=== PATIENT | female | born 1985 | race Caucasian/White ===

== ENCOUNTER → 2021-05-25 08:28 | Outpatient (CLI) | payer OTHER, SELFPAY ==
--- NOTE | 2021-05-25 08:30 | DI.US.S_ITS ---
PROCEDURE: US OB >= 14 WEEKS FETUS INDICATIONS: ANATOMY, LATE TO CARE OUTSIDE/PRIOR DATING DATA: Last menstrual period (LMP): Unknown. First dating scan (date and location): May 25, 2021 Estimated date of delivery (ABENA) from first dating scan: October 11, 2021. TECHNIQUE: Real-time scanning was performed of the fetus, with image documentation and biometric measurements. COMPARISON: None. FINDINGS: General: A single living intrauterine gestation is present. Presentation: Breech/oblique. Placenta: Placental position is anterior , without previa. Amniotic fluid index: 10.8 cm, normal range is 5-24 cm. Single deepest vertical pocket is 4.2 cm. heart rate: 153 beats per minute. Maternal cervical canal: 4.1 cm long. Normal lower limit is 2.5 cm. biometrics: Biparietal diameter: 4.8 cm Head circumference: 17.6 cm Abdominal circumference: 14.7 cm Femur length: 3.2 cm Composite gestational age from present scan: 20 weeks, 1 day Estimated weight: 322 g +/-48 g Anatomic survey: Neuro: Ventricles are non-dilated at less than 10 mm. Cisterna magna is normal at 3-11 mm. Cerebellum is normal in size and morphology. Nuchal skin fold: Normal at less than 6 mm between 14-21 weeks gestational age. Face: Nose and lips, facial profile are normal. Spine: No evidence for spina bifida. Heart: 4-chambered heart is present, with normal ventricular outflow tracts. Diaphragm: Diaphragm is intact. Stomach: Left-sided stomach is present. Kidneys: No hydronephrosis. Normal is less than 5 mm in 2nd trimester, less than 7 mm in 3rd trimester. Cord: 3-vessel cord has orthotopic insertion. Bladder: Normal in size. Extremities: All 4 extremities identified. IMPRESSION: Live single intrauterine gestation as detailed above. We strive to produce accurate, complete, and clear reports of imaging services. To assist us in improving patient care, this report was composed using standard report templates and voice recognition software. Therefore, it may contain abnormal punctuation, insertions and/or omissions. Occasional wrong-word or sound-alike substitutions may occur. Though we review the report and make efforts to correct it, we do recommend that the report be read carefully in proper context to recognize any text inaccuracies. Dictated by: Jorge Wilson M.D. on 05/25/2021 at 15:03 Approved by: Jorge Wilson M.D. on 05/25/2021 at 15:06
[2021-05-25 09:41] LABS: Appearance Urine UA CLEAR; Bilirubin Urine UA NEGATIVE (NEGATIVE); Color Urine UA YELLOW; Glucose Urine UA NEGATIVE (Negative); Ketones Urine UA NEGATIVE (NEGATIVE); Leukocyte Esterase Urine UA NEGATIVE (NEGATIVE); Nitrite Urine UA NEGATIVE (Negative); Occult Blood Urine UA NEGATIVE (Negative); Protein Urine UA NEGATIVE (Negative); Specific Gravity Urine UA <=1.005 (1.000-1.035); Urobilinogen Urine UA 0.2 E.U./dL (0.2)
[2021-05-25 11:03] LABS: HIV 1 & 2 Ab/Ag 4th Gen Combo NEGATIVE (NEGATIVE); Hep C Virus Ab w/Reflex Quant NEGATIVE s/c (NEGATIVE)
[2021-05-26 08:38] LABS: Toxoplasma IgG Interp Negative (.); Toxoplasma gohndii IgG <3.0 IU/mL (0.0-7.1); Varicella IgG Antibody 1387 index (Immune >165)
== END ==
PROVIDERS: Referring Provider Obstetrics & Gynecology; Visit Provider Obstetrics & Gynecology
DX: Z20.7 Contact with and (suspected) exposure to pediculosis, acariasis and other infestations; Z36.89 Encounter for other specified antenatal screening; Z3A.20 20 weeks gestation of pregnancy
CPT/HCPCS: 36415; 76811; 81003; 86777; 86778; 86787; 86803; 87086; 87389

== ENCOUNTER → 2021-07-16 08:47 | Outpatient (CLI) | payer OTHER, SELFPAY ==
[2021-07-16 11:28] LABS: Hemoglobin 11.7 g/dL (12.0-16.0)
[2021-07-16 11:51] LABS: GTT (PREG) 1 Hour PP 50gm Dose 142 mg/dL (76-139)
== END ==
PROVIDERS: Obstetrics & Gynecology; Referring Provider Family Medicine; Visit Provider Family Medicine
DX: Z34.82 Encounter for supervision of other normal pregnancy, second trimester (principal); Z3A.25 25 weeks gestation of pregnancy
CPT/HCPCS: 36415; 82950; 85014; 85018

== ENCOUNTER → 2021-07-18 07:29 | Outpatient (CLI) | payer OTHER, SELFPAY ==
[2021-07-18 09:08] LABS: Glucose Fasting Gestational 83 mg/dL (76-95)
[2021-07-18 10:51] LABS: Glucose Tol Interp,Gestational INTERPRETATION
[2021-07-18 10:54] LABS: Glucose 1 Hour Gest 147 mg/dL (76-180)
[2021-07-18 11:08] LABS: Glucose 2 Hour Gest 145 mg/dL (76-155)
[2021-07-18 11:41] LABS: Glucose 3 Hour Gest 125 mg/dL (76-140)
== END ==
PROVIDERS: Referring Provider Obstetrics & Gynecology; Visit Provider Obstetrics & Gynecology
DX: R73.09 Other abnormal glucose (principal)
CPT/HCPCS: 36415; 82951; 82952

== ENCOUNTER → 2021-09-12 15:05 | Outpatient (CLI) | payer OTHER, SELFPAY ==
[2021-09-13 15:22] LABS: Strep Grp B PCR NEG for Grp B Strep
== END ==
PROVIDERS: Visit Provider Obstetrics & Gynecology
DX: Z34.82 Encounter for supervision of other normal pregnancy, second trimester (principal); Z3A.36 36 weeks gestation of pregnancy
CPT/HCPCS: 87653

== ENCOUNTER 2021-10-05 05:28 | Inpatient (IN) | payer OTHER, SELFPAY ==
--- NOTE | 2021-10-04 14:12 | PM.OBHP.1 ---
OB HPI Date/Time Date of admission: 10/05/21 Date Patient Seen: 10/04/21 Time Patient Seen: 07:30 History of Present Condition Chief complaint: INPT : 3 Para: 2 Estimated Date of Delivery: 10/06/21 Estimated Gestational Age (weeks): 39+6 Narrative: Kristina Lemon is a 36 year old ABENA 10/06/2021 admitted now at 39+ 6 weeks gestational age for repeat section. course has been unremarkable. She did have potential toxoplasmosis exposure in the 1st trimester but all toxo AB titers have been negative. RPR, HepBSAg, GC/CT not preformed with PN labs therefore drawn on admission. GBS is negative. Indications Operative indications ( section): previous uterine surgery History of Present care: good care Dating criteria: LMP confirmed by 1st trimester US Ultrasounds: normal 1st trimester US and normal mid trimester US Obstetrical complications: none Medical complications: none Preadmission Labs Blood type: O (+) positive -: Antibody screen: unknown, GBS status: negative, HBsAG: unknown, HIV: negative and RPR/VDLR: unknown -: Rubella: unknown and Varicella: immune HCT: 34.0 HCAB: negative PAP: Normal 1 hr GTT: 142 3 hr GTT: 1 hr (147), 2 hr (145) and 3 hr (125) Fasting blood glucose: 83 Prior (ies) History: C/S x 2 Evaluation Evaluation Baseline heart rate: 130 Variability: Moderate (11-25) monitor accelerations: Present Monitor Decelerations: Absent Category of Tracing: Reactive Status: Category l PFSH Medical History Abnormal Pap smear of cervix Chlamydia (~2013) Foot pain (~2016) HPV (human papilloma virus) infection Migraines (~2016) Shoulder pain (~2002) Surgical History H/O LEEP History of History of wisdom tooth extraction Hx of tonsillectomy Family History Grandmother Hypertension Grandfather Hypertension Father Hyperlipidemia Mother Thyroid disease Grandfather Cancer Social History marital status: number of children: 2 household members: spouse and children lives independently: Yes housing: house pets and animals: Yes (Dogs) education level: college occupational status: employed current occupational exposures/hazards: Yes (Toxo exposure) seatbelt use: always water heater temp set < 120 deg: Yes (will check) working smoke detector in home: Yes fire extinguisher in home: No carbon monox detector in home: Yes firearms in home: No do you feel safe at home: Yes Smoking Status: Former smoker second hand exposure: No alcohol intake: former substance use type: does not use during the past year weight has: remained stable well-balanced diet: daily or most days daily servings fruits/ve-4 caffeine: Yes (200mg per day) Type(s) of exercise: walking Meds Home Medications and Allergies Home Medications Medication Instructions Recorded Confirmed Type docusate sodium 100 mg capsule 100 mg PO DAILY 05/07/21 10/05/21 History (Colace) folic acid 800 mcg tablet 0.8 mg PO DAILY 05/07/21 10/05/21 History prenat.vits,rae,juy-zeji-yvons 1 tab PO DAILY 05/07/21 10/05/21 History sumatriptan succinate 50 mg tablet 50 mg PO ONCE #20 tabs 08/22/21 10/05/21 Rx (Imitrex) Allergies Allergy/AdvReac Type Severity Reaction Status Date / Time No Known Drug Allergies Allergy Unverified 09/26/21 10:46 Review of Systems Review of Systems Narrative: Problem-specific ROS positives included in HPI OB Exam HENMT Head: normal to inspection, normocephalic and atraumatic Eyes General: appearance normal, both eyes and all related structures Resp Effort & Inspection: normal respiratory effort and able to speak in complete sentences Auscultation: clear to auscultation bilaterally Cardio Rate: regular rate Rhythm: regular rhythm Heart Sounds: S1 normal, S2 normal and no murmurs Extremities Lower extremity: Yes normal to inspection GI Inspection: normal to inspection Palpation: Yes soft and Yes no hepatosplenomegaly Uterus Location (Fundal Height): 38 Presentation: vertex Estimated Weight (lbs): 7 Objective Labs Result Diagrams: 10/05/21 06:00 Assessment and Plan Assessment and Plan Assessment and Plan narrative: ASSESSMENT 1. Intrauterine gestation, [place], 39+ 6 weeks gestational age 2. Prior sections x2 PLAN 1. Admit for repeat section 2. See orders
[2021-10-05 06:21] VITALS: BP 123/74
[2021-10-05 06:21] LABS: Add Manual Diff / Slide Review NO; Basophils Absolute Auto 0 /uL (0-100); Basophils Percent Auto 0.4 % (0-2); Eosinophils Absolute Auto 100 /uL (0-450); Eosinophils Percent Auto 0.8 % (2-4); Hemoglobin 10.9 g/dL (12.0-16.0); Lymphocytes Absolute Auto 2800 /uL (1100-4500); Lymphocytes Percent Auto 22.4 % (25-40); Mean Corpuscular HGB Conc 34.3 % (30-36); Mean Corpuscular Hemoglobin 28.9 PG (26-34); Mean Corpuscular Volume 84.3 fL (80-100); Monocytes Absolute Auto 800 /uL (0-900); Monocytes Percent Auto 6.4 % (3-14); Neutrophils Absolute Auto 8700 /uL (1500-7000); Platelet Count 236 X10^3/uL (150-400); Red Blood Cell Count 3.79 X10^6/uL (4.0-5.2); Red Cell Distribution Width 13.1 % (11.6-14.8); White Blood Cell Count 12.4 X10^3/uL (4.5-11.0)
[2021-10-05] MEDS: LACTATED RINGERS 1,000 ML 100 ML IV ×2 (06:48→10:24)
[2021-10-05 07:03] LABS: COVID19 -Nasal RAPID Negative (Negative)
[2021-10-05 07:28] LABS: Hepatitis B Surface Antigen NEGATIVE s/c (NEGATIVE); Rubella Antibody IgG 37.5 IU/mL (>15)
[2021-10-05] MEDS: CEFAZOLIN 2 GM/20 ML SYRINGE IV (08:09)
--- NOTE | 2021-10-05 08:36 | SUR.OPER ---
Supine on padded OR bed, head on pillow, arms secured on padded arm boards at <90 degrees abduction, legs uncrossed, safety belt at thigh, tape over blanket over lower legs.
[2021-10-05 09:20] VITALS: BP 118/63; PULSE 68; RESP 14; TEMP 36.7; O2SAT 100
[2021-10-05 09:25] VITALS: BP 119/69; PULSE 72; RESP 16; O2SAT 100
--- NOTE | 2021-10-05 09:29 | SUR.OPER ---
LIVE BABY BOY DELIVERED WITH USE OF VACUUM AT 0834. PLACENTA AND BLOOD TAKEN BY OB RN.
--- NOTE | 2021-10-05 09:29 | PM.PREOP ---
Pre-operative Note COVID-19 COVID-19 status: Negative Result date/Date tested (Pos, Neg/Pending): 10/05/21 Criteria for continued procedure: Non-surgical alternatives not available or appropriate per current SOC Interval Note History & Physical reviewed/Exam performed by Physician: Yes Changes to H&P: No
[2021-10-05 09:30] VITALS: BP 115/59; PULSE 69; RESP 14; O2SAT 100
--- NOTE | 2021-10-05 09:30 | PM.OBCS.1 ---
Operative Date/Time/Diagnoses Date of procedure: 10/05/21 Time of procedure: 08:15 Pre-op diagnosis: Intrauterine gestation, 39+ 6 weeks gestational age Prior section Post-op diagnosis: same Procedure & Clinicians Procedure: Repeat section, low transverse cervical Same procedure as scheduled: Yes Indications: Kristina Lemon is a 36 year old ABENA 10/06/2021 admitted now at 39+ 6 weeks gestational age for repeat section.? course has been unremarkable.? She did have potential toxoplasmosis exposure in the 1st trimester but all toxo AB titers have been negative. RPR, HepBSAg, GC/CT not preformed with PN labs therefore drawn on admission.? GBS is negative. Surgeon: Cirilo Chambers Legislators: Jazlyn Carrera Reason for Legislators: Legislators required for the safe, effective, and timely completion of this surgery. Anesthesia Type: Spinal Operative Notes Findings: Viable male infant BW 4064 gms. (8 lb. 15.4 oz.), Apgars 9/9, delivered from the vertex presentation. Normal gravid anatomy. Closure Type: primary Intraoperative meds administered: Acetaminophen, Ketorolac and Pitocin Applied: Catheter Estimated Blood Loss (mL): 600 Blood products transfused: none Procedure in detail: With her informed written consent, the patient was taken to the operating room and placed in the supine position for a second repeat section procedure, for the indication(s) above. The abdomen was prepped and draped in the usual manner for section and a pre-surgical timeout was taken per [facility] OR protocol. Once effective anesthesia was confirmed, a 15 cm transverse Pfannenstiel incision was made in the skin and taken down through the subcutaneous tissues to the deep fascia. The deep fascia was incised transversely, the rectus abdominal eyes bluntly and sharply, and the peritoneal cavity entered without difficulty. The lower uterine segment was visualized and the position/presentation palpated. A transverse incision at or above the vesicouterine reflection was made with Metzenbaum scissors and transverse hysterotomy performed near the midline. Amniotomy revealed clear fluid. The incision was extended bilaterally with digital traction and the was delivered with the assistance of vacuum extractor from the vertex presentation. The infant was vigorous and cord clamping delayed for 60 seconds. The placenta was delivered intact manually. The uterine cavity was then cleared of any clot/debris first with a sloppy wet lap tape followed by a dry lap tape. Ring forceps were then applied to the angles and the midline of the incised BABAR. A primary closure of the uterus was then accomplished with #1 CCGS in a running interlocking stitch followed by a 2nd layer of #1 CCGS in a running interlocking imbricating stitch. One additional figure of eight suture was required to achieve complete hemostasis. Once pelvic hemostasis was assured, the anterior peritoneum was closed with a running 2-0 Vicryl suture and the fascia closed with #1 Vicryl in a running stitch initiated at both angles and tying separately near the midline. The subcutaneous tissues were reapproximated with 2-0 plain catgut suture using inverted interrupted stitches. The skin edges were then brought together with 4-0 Monocryl in a subcuticular closure and the incision was reinforced with half-inch Steri-Strips. An appropriate compression dressing was applied and the patient transferred to PACU for recovery and subsequent transfer to the Center for recuperation. Complications: none [place] Baby 1: Infant Gender: Male Presentation: vertex Position: Left Occiput Anterior Placental Delivery Description: Manual Removal Cord Vessel Description: 3 Vessels score (1 min): 9 score (5 min): 9 weight: 8 lb 15.353 oz Post-operative Condition: stable Disposition: PACU Aftercare: routine postop
[2021-10-05 09:35] VITALS: BP 118/67; PULSE 69; RESP 12; O2SAT 100
[2021-10-05 09:40] VITALS: BP 119/71; PULSE 70; RESP 14; O2SAT 100
--- NOTE | 2021-10-05 10:04 | SUR.PHASEI ---
0940: Pt A&Ox4, denies any distress, abd dressing C/D/I, 2 clots during fundus check noted. Pt ready and desires to transfer to room. Report given to receiving RN using SBAR with time allowed for questions. Receiving RN requested ten minutes before transporting pt. 0950: Pt transported to OB bedside handoff to receiving RN including fundus and danae-pad check and change.
[2021-10-05] MEDS: ONDANSETRON 8 MG in SODIUM CHLORIDE 0.9% 100 ML 208 MG IV (13:47)
[2021-10-05] MEDS: KETOROLAC 30 MG/ML VIAL IV ×2 (15:20→21:16)
[2021-10-06] MEDS: KETOROLAC 30 MG/ML VIAL IV (03:38)
[2021-10-06 07:23] LABS: Add Manual Diff / Slide Review NO; Basophils Absolute Auto 0 /uL (0-100); Basophils Percent Auto 0.1 % (0-2); Eosinophils Absolute Auto 0 /uL (0-450); Eosinophils Percent Auto 0.2 % (2-4); Hematocrit 26.4 % (36-46); Hemoglobin 9.1 g/dL (12.0-16.0); Lymphocytes Absolute Auto 1600 /uL (1100-4500); Lymphocytes Percent Auto 12.2 % (25-40); Mean Corpuscular HGB Conc 34.5 % (30-36); Mean Corpuscular Hemoglobin 28.9 PG (26-34); Mean Corpuscular Volume 83.7 fL (80-100); Monocytes Absolute Auto 800 /uL (0-900); Monocytes Percent Auto 5.8 % (3-14); Neutrophils Absolute Auto 10700 /uL (1500-7000); Neutrophils Percent Auto 81.7 % (50-75); Platelet Count 217 X10^3/uL (150-400); Red Blood Cell Count 3.16 X10^6/uL (4.0-5.2); Red Cell Distribution Width 13.2 % (11.6-14.8); White Blood Cell Count 13.2 X10^3/uL (4.5-11.0)
[2021-10-06 07:36] LABS: RPR Screen Non Reactive (Non Reactive)
[2021-10-06] MEDS: IBUPROFEN 600 MG TABLET PO (10:25)
--- NOTE | 2021-10-06 11:16 | P.DS_ITS ---
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 Details of the procedure are well summarized on my operative note of that date. Following surgery the patient has done extremely well with prompt return of bowel and bladder function, she is am bulating independently, tolerating regular diet, and her pain is well controlled with oral pain medications. Postop hemoglobin and hematocrit are consistent with observed operative losses. Patient will be discharged this time in an afebrile normotensive condition home with medications to include oxycodone 5 mg p.o. q.4 hours as needed pain dispense 10 with no refills, ibuprofen 600 mg p.o. Q 6 hours as needed pain dispense 60 with 2 refills, and Colace 200 mg p.o. q.d. dispensed 30 with 2 refills. Prior to discharge the patient was counseled regarding precautionary symptoms, limitations of activity, medications, and plans for follow-up which will be in 1 week. Peripartum Data Infant Delivery Method: Section Laceration Description: None Episiotomy description: None Procedures: Repeat section (LTC) Spinal block anesthesia complications: none 1: Gender: Male Disposition of : home Status at Discharge Cognitive/behavioral status at discharge: oriented Functional status at discharge: independent ambulation Overall status at discharge: patient is progressing back to baseline Time Spent with Patient Time attestation: Total time spent providing and/or coordinating discharge services: Time spent: Less than 30 minutes Objective Labs Result Diagrams: 10/06/21 06:40 Labs: Laboratory Results - last 24 hr 10/05/21 10/06/21 06:00 06:40 WBC 13.2 H RBC 3.16 L Hgb 9.1 L Hct 26.4 L MCV 83.7 MCH 28.9 MCHC 34.5 RDW 13.2 Plt Count 217 Neut % (Auto) 81.7 H Lymph % (Auto) 12.2 L [place] % (Auto) 5.8 Eos % (Auto) 0.2 L Baso % (Auto) 0.1 Neut # (Auto) 78643 H Lymph # (Auto) 1600 [place] # (Auto) 800 Eos # (Auto) 0 Baso # (Auto) 0 Serum VDRL Non reactive Exam Vital Signs (past 8 hours): Oxygen Delivery Method Room Air Const General: cooperative and comfortable Nutritional Appearance: average body habitus Orientation: alert and oriented x3 HENMT Head: normal to inspection, atraumatic and abrasion Ears: hearing grossly normal bilaterally Face and sinus: face symmetric Eyes General: appearance normal, both eyes and all related structures Conjunctivae: conjunctivae normal Sclera: sclerae normal EOM: EOM intact bilaterally Neck Neck: normal visual inspection Resp Effort & Inspection: normal respiratory effort and able to speak in complete sentences Auscultation: clear to auscultation bilaterally Cardio Rate: regular rate Rhythm: regular rhythm Heart Sounds: S1 normal, S2 normal and no murmurs GI Inspection: normal to inspection and incision (Surgical dressing clean and dry) Palpation: soft, no hepatosplenomegaly, mass (Firm, minimally tender, fundus, U -5) and tender (Mild, diffuse postsurgical tenderness) External Female Exam: other (No significant bleeding noted) Extrem General: no calf tenderness Psych Appearance: grossly normal Mental Status: mental status grossly normal Speech and Movement: speech and movement normal Mood: congruent mood Affect: normal affect Attitude: cooperative Thought Process: normal Thought Content: normal Judgment: judgment good Discharge Plan Discharge Plan Patient Disposition: Home Provider Discharge Comment: Please review the written instructions you received when you were discharged from the hospital. Your follow-up appointment will be scheduled for 1 week following your surgery and I look forward to seeing you then. If in the meanwhile however you have any issues, concerns, or problems, please contact me either through the office phone at [phone], or via the patient portal. Discharge orders & Medications Prescriptions: New docusate sodium 100 mg Capsule 200 mg PO DAILY Qty: 30 2RF ibuprofen 600 mg Tablet 600 mg PO Q6HR PRN (Reason: Fever/Mild Pain (1-3)) Qty: 60 2RF oxycodone 5 mg Tablet 5 mg PO Q4H PRN (Reason: Pain, Moderate (4-6)) Qty: 10 0RF Continued prenat.vits,rae,xdd-leer-klwim Tablet 1 tab PO DAILY folic acid 800 mcg tablet 0.8 mg PO DAILY sumatriptan succinate [Imitrex] 50 mg tablet 50 mg PO ONCE Qty: 20 1RF Rx Instructions: may repeat once after at least 2 hours Discontinued docusate sodium [Colace] 100 mg capsule 100 mg PO DAILY Follow up/Referrals: Cirilo Chambers MD [Physician] - 1 Week (Please call on Friday for a one week follow-up appointment with Dr. Chambers, you can use [phone].) Discharge Health Status Multidrug resistant organism: No MDRO Diet/Activity/Treatments Diet: Diet as Tolerated Activity: As tolerated Other treatments: Tylenol may be used for additional pain relief up to 4,000 mg by mouth daily Skin/Wound/Dressing Care Report to your healthcare provider any signs of infection, such as:: chills, fever, increased pain, unusual drainage and unusual redness Dressing: Dressing will be removed at your one week post-op checkup Visit Report/Discharge Packet Instructions: DI for , DI for and Nipple Soreness, DI for Prescription Opioid Use Discharge Data Primary Care Provider: Miscellaneous,Doctor
[2021-10-06] MEDS: ACETAMINOPHEN 325 MG TABLET 650 MG PO (12:07)
[2021-10-06 13:13] VITALS: BP 119/71; PULSE 70; RESP 14; TEMP 36.7
== END 2021-10-06 12:50 | disposition home or self-care (01) | DRG 788 ==
PROVIDERS: Admitting Provider Obstetrics & Gynecology; Referring Provider Obstetrics & Gynecology; Visit Provider Obstetrics & Gynecology
PROC: 10D00Z1 Extraction of Products of Conception, Low, Open Approach (ICD-10-PCS; CPT 59514; principal; 2021-10-05 07:45)
DX: O34.211 Maternal care for low transverse scar from previous cesarean delivery (principal); Z3A.39 39 weeks gestation of pregnancy; Z37.0 Single live birth; Z20.822 Contact with and (suspected) exposure to COVID-19
CPT/HCPCS: 36415; 59050; 59510; 59514; 85025; 86592; 86762; 86850; 86900; 86901; 87340; 87635; C9803; J0690; J1885; J2274; J2405; J2590